=== PATIENT | female | born 2005 | race Caucasian/White ===

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

== ENCOUNTER 2024-01-20 02:33 | Outpatient (CLI) | payer MEDICAID, SELFPAY ==
[2024-01-20 14:35] LABS: Panorama Kit Sent via Fed Ex
[2024-01-20 14:44] LABS: Abs Immature Grans 0.03 10^3/uL (0.0-0.06); Absolute Basophil Count 0.06 10^3/uL (0.0-0.2); Absolute Eosinophil Count 0.19 10^3/uL (0.0-0.7); Absolute Lymphocyte Count 2.19 10^3/uL (1.2-3.4); Absolute Monocyte Count 0.42 10^3/uL (0.1-0.8); Absolute Neutrophil Count 6.63 10^3/uL (1.2-6.7); Basophils % 0.6 %; HCT 43.3 % (36.0-46.0); HGB 14.5 g/dL (11.2-15.7); Immature Grans % 0.3 %; MCH 28.5 pg (27.0-33.0); MCHC 33.5 % (32.0-36.0); MCV 85 fL (80-95); MPV 10.8 fL (8.0-11.0); Monocytes % 4.4 %; Neutrophils % 69.7 %; Platelet Count 327 10^3/uL (130-400); RBC 5.08 10^6/uL (3.93-5.22); RDW 14.5 % (11.7-14.6); WBC 9.52 10^3/uL (4.4-10.8)
[2024-01-20 15:40] LABS: TSH (W/Ref FT4) 0.93 uIU/mL (0.52-4.13)
[2024-01-21 09:53] LABS: Hepatitis B Surface Ag Negative (Negative)
[2024-01-21 10:15] LABS: Rubella IgG Ab (UVM) Positive (See Note)
[2024-01-21 10:17] LABS: Varicella IgG Antibody Negative (See Note)
[2024-01-21 10:24] LABS: HIV-1/2 Ag & Ab Screen Negative (Negative)
[2024-01-21 10:48] LABS: Hepatitis C Ab w Rflx HCV PCR Negative (Negative)
[2024-01-22 16:18] LABS: Syphilis IgG w/Reflex Nonreactive (Nonreactive)
[2024-01-23 16:45] LABS: Specimen WB Whole Blood
[2024-01-30 12:29] LABS: Result Summary NEGATIVE; Specimen WB Whole Blood
== END 2024-01-20 02:34 | disposition home or self-care (01) ==
LOC: LBO 02:33
PROVIDERS: Advanced Practice Midwife; Visit Provider Advanced Practice Midwife
DX: Z34.91 Encounter for supervision of normal pregnancy, unspecified, first trimester (principal); E03.9 Hypothyroidism, unspecified
CPT/HCPCS: 36415; 81220; 81222; 81329; 86787; 86803; 86850; 86900; 86901; 87340; 87389; 84443; 85025; 86762; 86780

== ENCOUNTER 2024-01-20 14:10 | Outpatient (REF) | payer MEDICAID, SELFPAY ==
[2024-01-21 12:44] LABS: Chlamydia Result Negative (Negative); GC Result Negative (Negative)
== END 2024-01-20 14:11 | disposition home or self-care (01) ==
LOC: LBN 14:10
PROVIDERS: Visit Provider Advanced Practice Midwife
DX: Z34.91 Encounter for supervision of normal pregnancy, unspecified, first trimester (principal)
CPT/HCPCS: 87491; 87591

== ENCOUNTER 2024-02-17 02:20 | Outpatient (CLI) | payer MEDICAID, SELFPAY ==
[2024-02-17 14:48] LABS: Glucose,1 Hr (Glucola) 143 mg/dL (80-140)
[2024-02-19 15:54] LABS: AFP 40.9 ng/mL; Calculated age at EDD 20 years; Cigarette smoking status non-Smoker; GA used in risk estimate Scan estimate; IVF Pregnancy No; Initial or repeat testing Initial testing; Insulin dependent diabetes No; Maternal Weight 184 lbs; Number of Fetuses 1; Physician Phone Number 802-748-7300; Prev Pregnancy w/NTD No; RECOMMENDED FOLLOW UP None.; Results Summary Normal risk
== END 2024-02-17 02:21 | disposition home or self-care (01) ==
LOC: LBO 02:20
PROVIDERS: Visit Provider Advanced Practice Midwife
DX: Z34.91 Encounter for supervision of normal pregnancy, unspecified, first trimester
CPT/HCPCS: 36415; 82950; 82105; 87086

== ENCOUNTER 2024-03-05 00:58 | Outpatient (CLI) | payer MEDICAID, SELFPAY | END 2024-03-05 00:59 | disposition home or self-care (01) | LOC: LBO 00:58 | PROVIDERS: Advanced Practice Midwife; Visit Provider Advanced Practice Midwife | DX: R73.09 Other abnormal glucose (principal) | CPT/HCPCS: 36415; 82951 ==

== ENCOUNTER 2024-03-15 01:52 | Outpatient (CLI) | payer MEDICAID, SELFPAY ==
--- NOTE | 2024-03-15 07:20 | DI.US_ITS ---
Exam(s) US OB 2-3 TRIMESTER EXAM: US OB 2-3 TRIMESTER CLINICAL HISTORY: ,z34.90. TECHNIQUE: Transabdominal obstetrical ultrasound performed. COMPARISON: No exams were available for comparison FINDINGS: Number of fetuses: 1 position: CEPHALIC heart rate: 96bpm Placental location: There is a grade 1 anterior placenta. The placental tip is 6.0 cm from the inter nal os. No evidence of previa. Amniotic fluid index: Amount of fluid is within normal limits. ANATOMICAL SURVEY: Within normal limits. BIOMETRIC DATA: BPD: 4.39cm, 19weeks 2days HC: 17.65cm, 20weeks 1day AC: 15.77cm, 20weeks 6days FL: 3.34cm, 20weeks 3days Cisterna magna: 4mm Cerebellum: 2cm Lateral ventricle: 0.7 cm EFW: 364.15g, 0.8lb, 54.6% Composite Age: 20weeks 1day RAVEN: 08/01/2024 Heart Rate: 96bpm ANATOMICAL SURVEY: Four-chambered heart: Unremarkable. RVOT: Unremarkable. LVOT: Unremarkable. Left-sided stomach: Unremarkable. urinary bladder: Unremarkable. Bilateral kidneys: Unremarkable. Three-vessel cord: Unremarkable. Cord insertion: Unremarkable. Posterior fossa: Unremarkable. ventricles: Unremarkable. nose/lips: Unremarkable. Palate: Unremarkable. spine: Unremarkable. Two arms and two legs: Unremarkable. IMPRESSION: 1. Single live intrauterine gestation as above. 2. Normal anatomic survey. DATA REPOSITORY:
== END 2024-03-15 02:12 ==
PROVIDERS: PCP Nurse Practitioner Family; Visit Provider Advanced Practice Midwife
DX: Z34.92 Encounter for supervision of normal pregnancy, unspecified, second trimester (principal); Z3A.20 20 weeks gestation of pregnancy
CPT/HCPCS: 76805

== ENCOUNTER 2024-03-15 14:03 | Outpatient (REF) | payer MEDICAID, SELFPAY | END 2024-03-15 14:04 | disposition home or self-care (01) | LOC: LBN 14:03 | PROVIDERS: PCP Nurse Practitioner Family; Visit Provider Advanced Practice Midwife | DX: Z34.92 Encounter for supervision of normal pregnancy, unspecified, second trimester (principal); Z3A.20 20 weeks gestation of pregnancy; R82.89 Other abnormal findings on cytological and histological examination of urine | CPT/HCPCS: 87086 ==

== ENCOUNTER 2024-04-12 14:37 | Outpatient (REF) | payer MEDICAID, SELFPAY | END 2024-04-12 14:38 | disposition home or self-care (01) | LOC: LBN 14:37 | PROVIDERS: PCP Nurse Practitioner Family; Visit Provider Advanced Practice Midwife | DX: N39.0 Urinary tract infection, site not specified (principal); Z34.92 Encounter for supervision of normal pregnancy, unspecified, second trimester | CPT/HCPCS: 87086 ==

== ENCOUNTER 2024-04-25 20:56 | Outpatient (CLI) | payer MEDICAID, SELFPAY ==
[2024-04-25 20:59] VITALS: BP 141/83; PULSE 85; RESP 16; TEMP 37.3; O2SAT 98
[2024-04-25 21:31] VITALS: BP 120/69; PULSE 83
--- NOTE | 2024-04-25 22:03 | W.ED.GENAD ---
Discharge Plan Disposition Patient Disposition: Admit to [facility] Condition: Stable Discharge Details Clinical Impression: Decreased movement Attending Provider: Rochelle Reeder Primary Care Provider: Rae Cristina ED Provider: Marco Antonio Forde [facility] General Date/Time Provider Initiated Documentation: 04/25/24 21:01. Limitations to Documentation: no limitations. Information obtained by: patient. HPI Narrative: 19-year-old female G1, P0 at 26 weeks presents for evaluation of decreased movement. She reports that she typically feels the baby move quite frequently throughout the day but has not had much movement since yesterday. She reports that this morning she also started having a sharp midline lower abdominal pain. Not associated with any abdominal cramping, loss of fluid or vaginal bleeding. She reports a white vaginal discharge that is been taking place throughout the . She denies any burning with urination or decreased urination. Related Data Home Medications ?Medication ?Instructions ?Recorded ?Confirmed levothyroxine 50 mcg capsule 50 mcg PO DAILY 04/30/23 04/25/24 ondansetron HCl 4 mg tablet 4 mg PO Q6H PRN nausea and 12/02/23 04/25/24 vomiting #60 tabs vitamins no.119-iron 1 tab PO DAILY 12/09/23 04/25/24 fumarate 29 mg-folic acid 1 mg tablet docusate sodium 100 mg capsule 100 mg PO BID #60 caps 02/17/24 04/25/24 (Colace) pantoprazole 40 mg tablet,delayed 40 mg PO DAILY #90 tabs 02/17/24 04/25/24 release (Protonix) lancets #100 ea 03/05/24 04/25/24 blood sugar diagnostic (OneTouch #100 ea 03/15/24 04/25/24 Ultra Test strips) blood-glucose meter (OneTouch #1 ea 03/15/24 04/25/24 Ultra2 Meter) aspirin 81 mg chewable tablet 81 mg PO DAILY 04/12/24 04/25/24 ferrous sulfate 325 mg (65 mg 325 mg PO DAILY #90 tabs 04/12/24 04/25/24 iron) tablet (Feosol) Previous Rx's ?Medication ?Instructions ?Recorded ondansetron HCl 4 mg tablet 4 mg PO Q6H PRN nausea and 12/02/23 vomiting #60 tabs docusate sodium 100 mg capsule 100 mg PO BID #60 caps 02/17/24 (Colace) pantoprazole 40 mg tablet,delayed 40 mg PO DAILY #90 tabs 02/17/24 release (Protonix) lancets #100 ea 03/05/24 blood sugar diagnostic (OneTouch #100 ea 03/15/24 Ultra Test strips) blood-glucose meter (OneTouch #1 ea 03/15/24 Ultra2 Meter) ferrous sulfate 325 mg (65 mg 325 mg PO DAILY #90 tabs 04/12/24 iron) tablet (Feosol) Allergies Allergy/AdvReac Type Severity Reaction Status Date / Time kiwi Allergy Severe Anaphylaxis Verified 04/25/24 21:04 peach Allergy Severe Anaphylaxis Verified 04/25/24 21:04 General Stated Complaint: [employer]IST RACHEL: 4 Exam Narrative Exam Narrative: Review of Systems: All systems reviewed & are unremarkable except as noted in HPI and below Well-developed, no acute distress NCAT Unlabored respiratory effort Gravid abdomen soft nontender, ultrasound with heart rate noted at 145 with some movement Course Vital Signs Vital signs: Vital Signs Temperature 37.3 C 04/25/24 20:59 Pulse 85 04/25/24 20:59 Respiratory Rate 16 04/25/24 20:59 Blood Pressure 141/83 H 04/25/24 20:59 Pulse Oximetry 98 04/25/24 20:59 Temperature 37.3 C 04/25/24 20:59 Pulse 83 04/25/24 21:31 Respiratory Rate 16 04/25/24 20:59 Blood Pressure 120/69 04/25/24 21:31 Pulse Oximetry 98 04/25/24 20:59 Pain Level 0 04/25/24 21:08 Medical Decision Making Urgent evaluation and decreased movement. Patient is approximately 26 weeks and followed by nurse midwives at this facility. Her blood pressure is noted to be slightly elevated and and should be rechecked. There is heart activity no movement noted. No signs of active labor. Discussed with L&D and the patient will go up there for further monitoring. Quality:SDOH Health Related Social Needs: No Data to Display PFSH All Active Problems (Updated 04/25/24 @ 21:26 by MIGUELANGEL MADRID) Decreased movement (Acute) Low back pain (Acute) sledding accident age 9. Has done PT Elevated glucose level (Acute) Body mass index [BMI] 36.0-36.9, adult (Acute) Maternal varicella, non-immune (Acute) Rh negative state in antepartum period (Acute) Nausea and vomiting during (Acute) (Acute) History of PCOS (Acute) Hypothyroid (Chronic) Medical History (Updated 04/25/24 @ 21:26 by MIGUELANGEL MADRID) UTI (urinary tract infection) Coccygeal fracture fell down stairs age 14 History of migraine Amenorrhea Polycystic ovarian syndrome diagnosed 10/2023 at [facility] Surgical History (Updated 01/20/24 @ 13:15 by Rochelle Reeder CNM) H/O wrist surgery ganglion cyst Family History (Updated 03/05/24 @ 10:42 by Isabela Zazueta CNM) Mother Breast cancer Cancer ovarian CA Migraine Diabetes T2DM, on insulin Maternal Grandmother Breast cancer Diabetes Father Diabetes Paternal Grandmother Cancer brain CA Paternal Grandfather Alcohol use disorder Maternal Uncle Diabetes Social History (Updated 04/30/23 @ 14:58 by Naz Cardenas RN) Smoking/Tobacco Use Status: Never Smoking risk assessment performed?: Yes Alcohol Intake: never Drug use: Never Do you feel safe at home: Yes Do you feel safe in your relationship?: Yes Female Reproductive History Menstrual Age of Menarche: 10 History History 1 Para Hx # Term Pregnancies 0 Multiple births Hx # Pregnancies Ectopic pregnancies AB induced Hx Number of Living Children AB spontaneous
[2024-04-25 22:06] VITALS: BP 120/69; PULSE 83; TEMP 36.7
--- NOTE | 2024-04-25 23:42 | PDOC.NST_ITS ---
Date of service: 04/25/24 Time of Service: 23:42 NST Evaluation Reason for NST Reasons for Nonstress Test: DECREASED MOVEMENT Gestational Age Gestational Age in Weeks and Days: 26 Weeks and 2Days Test and Monitor Explained Test/Monitor Explained: Test Explained, Monitor Explained and Patient Verbalized Understanding Vital Signs Blood Pressure: 120/69 Pulse: 83 Temperature: 98.0 F NST Information Date on Monitor: 04/25/24 Time on Monitor: 21:42 Date off Monitor: 04/25/24 Time off Monitor: 22:07 Total Time on Monitor: 25 NST Interventions: None Contraction Frequency: not stiven NST Evaluation Patient States Movement: Present FHR Baseline: 145 Variability: Moderate 6-25 bpm Accelerations: 15x15 Decelerations: None NST Results: Reactive Note Ultrasound Done: N/A. NST Note Note: Camryn came to the ED and reported decreased movement. Baby was active during NST and reactive NST obtained. She reports ligamnet pain fr which she has been seeing PT. Follow up at [facility] NST Reviewed and Verified by: Rochelle Reeder
[2024-04-25 23:44] VITALS: BP 120/69; PULSE 83; TEMP 36.7
== END 2024-04-25 22:30 ==
LOC: ER 21:26 → BCD 21:27 → OBS 21:30
PROVIDERS: Emergency Provider Emergency Medicine; PCP Nurse Practitioner Family; Visit Provider Advanced Practice Midwife
DX: O36.8120 Decreased fetal movements, second trimester, not applicable or unspecified (principal); Z3A.26 26 weeks gestation of pregnancy
CPT/HCPCS: 59025

== ENCOUNTER 2024-05-10 02:49 | Outpatient (CLI) | payer MEDICAID, SELFPAY ==
[2024-05-10 12:47] LABS: HCT 37.9 % (36.0-46.0); HGB 12.4 g/dL (11.2-15.7); MCH 29.1 pg (27.0-33.0); MCHC 32.7 % (32.0-36.0); MCV 89 fL (80-95); MPV 9.8 fL (8.0-11.0); Platelet Count 321 10^3/uL (130-400); RBC 4.26 10^6/uL (3.93-5.22); RDW 13.5 % (11.7-14.6); RDW-SD 43.8 fL; WBC 15.51 10^3/uL (4.4-10.8)
[2024-05-10 14:19] LABS: TSH (W/Ref FT4) 1.75 uIU/mL (0.36-3.74)
== END 2024-05-10 02:50 | disposition home or self-care (01) ==
LOC: LBO 02:49
PROVIDERS: PCP Nurse Practitioner Family; Visit Provider Advanced Practice Midwife
DX: Z34.93 Encounter for supervision of normal pregnancy, unspecified, third trimester (principal); E03.9 Hypothyroidism, unspecified
CPT/HCPCS: 36415; 85027; 86850; 90384; 84443

== ENCOUNTER 2024-06-22 14:04 | Outpatient (CLI) | payer MEDICAID, SELFPAY ==
[2024-06-22 14:14] VITALS: BP 123/72; PULSE 83; TEMP 36.8
--- NOTE | 2024-06-22 17:51 | W.OBNST ---
Date of service: 06/22/24 Time of Service: 17:51 NST Evaluation Reason for NST Reasons for Nonstress Test: DECREASED MOVEMENT Gestational Age Gestational Age in Weeks and Days: 34 Weeks and 4Days Test and Monitor Explained Test/Monitor Explained: Test Explained, Monitor Explained and Patient Verbalized Understanding Vital Signs Blood Pressure: 123/72 Pulse: 83 Temperature: 98.2 F Urine Results Urine Protein: Negative Urine Ketones: Negative Urine Glucose: Negative Urine Blood: Negative NST Information Date on Monitor: 06/22/24 Time on Monitor: 14:06 Date off Monitor: 06/22/24 Time off Monitor: 15:42 Total Time on Monitor: 96 NST Interventions: None, PO Hydration and Notify Provider NST Evaluation Patient States Movement: Decreased FHR Baseline: 145 Variability: Moderate 6-25 bpm Accelerations: 15x15 Decelerations: None NST Results: Reactive NST Results Other: irregular FHT rhythm heard Note Ultrasound Done: N/A. NST Note Note: Discussed FHT irregularity with pt, she accepts referral to [facility], which has been ordered. NST Reviewed and Verified by: Mee Winter
[2024-06-22 17:52] VITALS: BP 123/72; PULSE 83; TEMP 36.8
== END 2024-06-22 16:20 ==
LOC: BCD 14:05 → OBS 14:12
PROVIDERS: PCP Nurse Practitioner Family; Visit Provider Advanced Practice Midwife
DX: Z3A.34 34 weeks gestation of pregnancy (principal); O36.8131 Decreased fetal movements, third trimester, fetus 1
CPT/HCPCS: 59025

== ENCOUNTER 2024-07-05 14:44 | Outpatient (CLI) | payer MEDICAID, SELFPAY ==
[2024-07-05 15:25] VITALS: BP 126/82; PULSE 71
--- NOTE | 2024-07-05 17:10 | W.OBNST ---
Date of service: 07/05/24 Time of Service: 17:10 NST Evaluation Reason for NST Reasons for Nonstress Test: OTHER, SEE COMMENT Reason for NST Other: hx of arrythmia Gestational Age Gestational Age in Weeks and Days: 36 Weeks and 3Days Test and Monitor Explained Test/Monitor Explained: Test Explained, Monitor Explained and Patient Verbalized Understanding Vital Signs Blood Pressure: 126/82 Pulse: 71 Urine Results Urine Protein: Negative Urine Ketones: Negative Urine Glucose: Negative Urine Blood: Negative NST Information Date on Monitor: 07/05/24 Time on Monitor: 14:56 Date off Monitor: 07/05/24 Time off Monitor: 16:30 Total Time on Monitor: 94 NST Interventions: PO Hydration and Reposition Patient Contraction Frequency: 0 NST Evaluation Patient States Movement: Present FHR Baseline: 135 Variability: Moderate 6-25 bpm Accelerations: 15x15 Decelerations: None NST Results: Reactive Note Ultrasound Done: N/A. NST Note Note: No arrhythmia heard NST weekly NST Reviewed and Verified by: Mee Winter
[2024-07-05 17:11] VITALS: BP 126/82; PULSE 71
[2024-07-05 17:17] VITALS: BP 126/82; PULSE 71
== END 2024-07-05 16:45 ==
LOC: BCD 14:45 → OBS 15:05
PROVIDERS: PCP Nurse Practitioner Family; Visit Provider Advanced Practice Midwife
DX: O36.8331 Maternal care for abnormalities of the fetal heart rate or rhythm, third trimester, fetus 1 (principal); Z3A.36 36 weeks gestation of pregnancy
CPT/HCPCS: 59025

== ENCOUNTER 2024-07-05 15:05 | Outpatient (REF) | payer MEDICAID, SELFPAY | END 2024-07-05 15:06 | disposition home or self-care (01) | LOC: LBN 15:05 | PROVIDERS: PCP Nurse Practitioner Family; Visit Provider Advanced Practice Midwife | DX: Z34.93 Encounter for supervision of normal pregnancy, unspecified, third trimester (principal) | CPT/HCPCS: 87081 ==

== ENCOUNTER 2024-07-14 15:10 | Outpatient (CLI) | payer MEDICAID, SELFPAY ==
[2024-07-14 15:26] VITALS: BP 127/75; PULSE 77; TEMP 36.6
[2024-07-14 15:42] VITALS: BP 127/75; PULSE 77; TEMP 36.6
--- NOTE | 2024-07-14 15:42 | W.OBNST ---
Date of service: 07/14/24 Time of Service: 15:42 NST Evaluation Reason for NST Reasons for Nonstress Test: OTHER, SEE COMMENT Reason for NST Other: Arrythmia Gestational Age Gestational Age in Weeks and Days: 37 Weeks and 2Days Test and Monitor Explained Test/Monitor Explained: Test Explained, Monitor Explained and Patient Verbalized Understanding Vital Signs Blood Pressure: 127/75 Pulse: 77 Temperature: 97.9 F Urine Results Urine Protein: Negative Urine Ketones: Negative Urine Glucose: Negative Urine Blood: Negative NST Information Date on Monitor: 07/14/24 Time on Monitor: 15:11 Date off Monitor: 07/14/24 Time off Monitor: 15:31 Total Time on Monitor: 20 NST Interventions: PO Hydration and Notify Provider Contraction Frequency: 0 NST Evaluation Patient States Movement: Present FHR Baseline: 150 Variability: Moderate 6-25 bpm Accelerations: 15x15 Decelerations: None NST Results: Reactive Note Ultrasound Done: N/A. NST Note NST Reviewed and Verified by: Mee Winter
== END 2024-07-14 15:39 ==
LOC: BCD 15:10 → OBS 15:18
PROVIDERS: PCP Nurse Practitioner Family; Visit Provider Advanced Practice Midwife
DX: O36.8331 Maternal care for abnormalities of the fetal heart rate or rhythm, third trimester, fetus 1 (principal); Z3A.37 37 weeks gestation of pregnancy
CPT/HCPCS: 59025

== ENCOUNTER 2024-07-20 20:42 | Outpatient (CLI) | payer MEDICAID, SELFPAY ==
[2024-07-20 21:31] VITALS: BP 117/76; PULSE 82; TEMP 36.5
[2024-07-20 21:40] VITALS: BP 117/76; PULSE 82
--- NOTE | 2024-07-21 09:17 | W.OBNST ---
Date of service: 07/20/24 Time of Service: 22:00 NST Evaluation Reason for NST Reasons for Nonstress Test: DECREASED MOVEMENT Gestational Age Gestational Age in Weeks and Days: 38 Weeks and 4Days Test and Monitor Explained Test/Monitor Explained: Test Explained, Monitor Explained and Patient Verbalized Understanding Vital Signs Blood Pressure: 117/76 Pulse: 82 Temperature: 97.7 F Urine Results Urine Protein: Negative Urine Ketones: Negative Urine Glucose: Negative Urine Blood: Negative NST Information Date on Monitor: 07/20/24 Time on Monitor: 21:35 Date off Monitor: 07/20/24 Time off Monitor: 22:07 Total Time on Monitor: 32 Contraction Frequency: 0 NST Evaluation Patient States Movement: Decreased FHR Baseline: 125 Variability: Moderate 6-25 bpm Accelerations: 15x15 Decelerations: None NST Results: Reactive Note Ultrasound Done: N/A. NST Note Note: Camryn called and reported decreased fetl movement. The baby was active during NST and Camryn was able to detect movement. Reactive NST NST Reviewed and Verified by: Rochelle Reeder
[2024-07-21 09:18] VITALS: BP 117/76; PULSE 82; TEMP 36.5
== END 2024-07-20 22:15 ==
LOC: BCD 20:44 → OBS 21:29
PROVIDERS: PCP Nurse Practitioner Family; Visit Provider Advanced Practice Midwife
DX: O36.8131 Decreased fetal movements, third trimester, fetus 1 (principal); Z3A.38 38 weeks gestation of pregnancy
CPT/HCPCS: 59025

== ENCOUNTER 2024-07-23 07:37 | Outpatient (CLI) | payer MEDICAID, SELFPAY ==
[2024-07-23 14:25] VITALS: BP 118/73; PULSE 81; TEMP 36.7
[2024-07-23 14:55] VITALS: BP 118/73; PULSE 81
[2024-07-23 15:34] VITALS: BP 118/73; PULSE 81; TEMP 36.7
--- NOTE | 2024-07-23 15:34 | W.OBNST ---
Date of service: 07/23/24 Time of Service: 15:34 NST Evaluation Reason for NST Reasons for Nonstress Test: OTHER, SEE COMMENT Reason for NST Other: arrythmia Gestational Age Gestational Age in Weeks and Days: 39 Weeks and 0Days Test and Monitor Explained Test/Monitor Explained: Test Explained Vital Signs Blood Pressure: 118/73 Pulse: 81 Temperature: 98.1 F NST Information Date on Monitor: 07/23/24 Time on Monitor: 14:25 NST Interventions: PO Hydration NST Evaluation Patient States Movement: Present FHR Baseline: 145 Variability: Moderate 6-25 bpm Accelerations: 15x15 Decelerations: None NST Results: Reactive Note Ultrasound Done: N/A. NST Note Note: No arrythmia heard NST Reviewed and Verified by: Mee Winter
== END 2024-07-23 15:15 ==
LOC: BCD 07:38 → OBS 14:33
PROVIDERS: PCP Nurse Practitioner Family; Visit Provider Advanced Practice Midwife
DX: O36.8331 Maternal care for abnormalities of the fetal heart rate or rhythm, third trimester, fetus 1 (principal); Z3A.39 39 weeks gestation of pregnancy
CPT/HCPCS: 59025

== ENCOUNTER 2024-07-27 17:05 | Outpatient (CLI) | payer MEDICAID, SELFPAY ==
[2024-07-27 18:24] VITALS: BP 139/97; PULSE 100
[2024-07-27 18:31] VITALS: BP 133/88; PULSE 100; TEMP 36.5
[2024-07-27 18:56] VITALS: BP 129/76; PULSE 106
[2024-07-27 19:12] LABS: COMMENT (LAB VIEW ONLY) 45.01 mg/dL; PROTEIN 6.7 mg/dL; Prot/Crea Ur Ratio 0.14
[2024-07-27 19:14] LABS: HCT 38.4 % (36.0-46.0); HGB 12.8 g/dL (11.2-15.7); MCH 27.5 pg (27.0-33.0); MCHC 33.3 % (32.0-36.0); MCV 82 fL (80-95); MPV 11.1 fL (8.0-11.0); Platelet Count 261 10^3/uL (130-400); RBC 4.66 10^6/uL (3.93-5.22); RDW 14.2 % (11.7-14.6); RDW-SD 41.9 fL; WBC 15.65 10^3/uL (4.4-10.8)
[2024-07-27 19:30] LABS: ALT 14 U/L (14-59); AST 8 U/L (15-37); Albumin 2.7 g/dL (3.4-5.0); Alkaline Phosphatase 181 U/L (46-116); Anion Gap 12.4 mmol/L (3-11); BUN 6 mg/dL (7-18); Bilirubin, Total 0.2 mg/dL (0.2-1.0); CO2 22.6 mmol/L (21.0-32.0); CREATININE 0.7 mg/dL (0.55-1.02); Calcium 9.3 mg/dL (8.5-10.1); Chloride 105 mmol/L (98-107); Glucose 110 mg/dL (74-106); Potassium 3.8 mmol/L (3.5-5.1); Sodium 140 mmol/L (136-145)
[2024-07-27 19:31] VITALS: BP 133/88; PULSE 90
[2024-07-27] MEDS: Acetaminophen 500 MG TAB 1000 MG PO (19:38)
--- NOTE | 2024-07-27 19:44 | W.OBNST ---
Date of service: 07/27/24 Time of Service: 19:44 NST Evaluation Reason for NST Reasons for Nonstress Test: OTHER, SEE COMMENT Reason for NST Other: rule out labor Gestational Age Gestational Age in Weeks and Days: 39 Weeks and 4Days Test and Monitor Explained Test/Monitor Explained: Test Explained, Monitor Explained and Patient Verbalized Understanding Vital Signs Blood Pressure: 129/76 Pulse: 100 Temperature: 97.7 F Urine Results Urine Protein: Negative Urine Ketones: Negative Urine Glucose: Negative Urine Blood: Negative NST Information Date on Monitor: 07/27/24 Time on Monitor: 18:24 Date off Monitor: 07/27/24 Time off Monitor: 19:30 Total Time on Monitor: 66 NST Interventions: PO Hydration Contraction Frequency: 2-5 NST Evaluation Patient States Movement: Present FHR Baseline: 120 Variability: Moderate 6-25 bpm Accelerations: 15x15 Decelerations: None NST Results: Reactive Note Ultrasound Done: N/A. NST Note Note: Cvx closed, posterior, firm, cephalic presentation out of the pelvis (Lamb score 0) BP 130's over 80's, one mild range, labs WNL NST reactive Return in 48 hrs for recheck and NST NST Reviewed and Verified by: Mee Winter
[2024-07-27 19:47] VITALS: BP 129/76; PULSE 100; TEMP 36.5
== END 2024-07-27 19:41 ==
LOC: BCD 17:09 → OBS 17:10
PROVIDERS: PCP Nurse Practitioner Family; Visit Provider Advanced Practice Midwife
DX: O47.1 False labor at or after 37 completed weeks of gestation (principal); Z3A.39 39 weeks gestation of pregnancy
CPT/HCPCS: 80053; 85027; 59025; 82565; 84156

== ENCOUNTER 2024-07-29 15:21 | Outpatient (CLI) | payer MEDICAID, SELFPAY ==
[2024-07-29 15:41] VITALS: BP 133/84; PULSE 99; TEMP 36.6
[2024-07-29 16:25] VITALS: BP 133/84; PULSE 90
--- NOTE | 2024-07-29 17:23 | W.OBNST ---
Date of service: 07/29/24 Time of Service: 17:49 NST Evaluation Reason for NST Reasons for Nonstress Test: FALSE LABOR Gestational Age Gestational Age in Weeks and Days: 39 Weeks and 6Days Test and Monitor Explained Test/Monitor Explained: Test Explained, Monitor Explained and Patient Verbalized Understanding Vital Signs Blood Pressure: 133/84 Pulse: 90 NST Information Time on Monitor: 15:42 Date off Monitor: 07/29/24 Time off Monitor: 16:10 NST Interventions: None NST Evaluation Patient States Movement: Present FHR Baseline: 135 Variability: Moderate 6-25 bpm Accelerations: 15x15 Decelerations: None Note Ultrasound Done: N/A. NST Note Note: Camryn went to a relative's house to ambulate and she returned with stronger contractions. She was examined and cervix was FT/560%/-2. Membranes intact. reactive NST. I reviewed options of continued observation, therapeutic rest and returning home. She decided to return home to await active labor. Adequate hydration recommended. Signs of labor reviewed. NST Reviewed and Verified by: Rochelle Reeder
[2024-07-29 17:26] VITALS: BP 133/84; PULSE 90
--- NOTE | 2024-07-29 23:41 | W.OBNST ---
Date of service: 07/29/24 Time of Service: 18:00 NST Evaluation Reason for NST Reasons for Nonstress Test: FALSE LABOR Gestational Age Gestational Age in Weeks and Days: 39 Weeks and 6Days Test and Monitor Explained Test/Monitor Explained: Test Explained, Monitor Explained and Patient Verbalized Understanding Vital Signs Blood Pressure: 133/84 Pulse: 90 NST Information Date on Monitor: 07/29/24 Time on Monitor: 15:42 Date off Monitor: 07/29/24 Time off Monitor: 16:10 Total Time on Monitor: 28 NST Interventions: None NST Evaluation Patient States Movement: Present FHR Baseline: 135 Variability: Moderate 6-25 bpm Accelerations: 15x15 Decelerations: None Note Ultrasound Done: N/A. NST Note Note: Camryn returned from her relative's house and reported that she was having stronger contractions. Her cervix was unchanged and she was given the option of therapeutic rest or returning hime to await more active labor. She chose to return to her home and signs of active labor were reviewed. NST Reviewed and Verified by: Rochelle Reeder
[2024-07-29 23:43] VITALS: BP 133/84; PULSE 90
== END 2024-07-29 16:32 ==
LOC: BCD 15:22 → OBS 15:40
PROVIDERS: PCP Nurse Practitioner Family; Visit Provider Advanced Practice Midwife
DX: O36.8331 Maternal care for abnormalities of the fetal heart rate or rhythm, third trimester, fetus 1 (principal); Z3A.39 39 weeks gestation of pregnancy
CPT/HCPCS: 59025

== ENCOUNTER 2024-07-30 12:57 | Inpatient (IN) | payer MEDICAID, SELFPAY ==
[2024-07-30] VITALS (66 sets, daily range): BP systolic 116–142; BP diastolic 63–89; PULSE 0–123; RESP 16–120; TEMP 36.3–37.4; O2SAT 95–99; BMI 38.0
[2024-07-30 13:20] LABS: HCT 40.9 % (36.0-46.0); HGB 13.6 g/dL (11.2-15.7); MCH 27.3 pg (27.0-33.0); MCHC 33.3 % (32.0-36.0); MCV 82 fL (80-95); MPV 11.4 fL (8.0-11.0); Platelet Count 290 10^3/uL (130-400); RBC 4.98 10^6/uL (3.93-5.22); RDW 14.3 % (11.7-14.6); RDW-SD 41.4 fL; WBC 17.07 10^3/uL (4.4-10.8)
--- NOTE | 2024-07-30 13:23 | HPE_ITS ---
Date of service: 07/30/24 Time of Service: 13:25 Assessment and Plan Assessment and plan (1) Encounter for induction of labor: Status: Acute Assessment and plan: Admit to Center and routine admission labs. Reviewed options with Camryn and Casimiro of therapeutic rest or cervical ripening with or without epidural analgesia. She prefers not to take medication and she opts to proceed with cervical ripening. She requested to avoid an IV unless medically indicate. Reviewed options for ripening and she desires oral misoprostol at this time. Maikol Kowalski DIRECTOR OF PROGRAM MANAGEMENT notified of admission and he will meet Camryn to discuss analgesia options. She hopes to use the tub for comfort. Will continue to provide comfort measures. Anticipate . OB-HPI Labor/Delivery History of Present Illness Reason for Visit: cervical ripening Chief Complaint: Uterine Contractions; Maternal Discomfort (fatigue) , Associated Signs and Symptoms of Maternal Discomfort: contractions. RAVEN Calculator Estimated Delivery Date Method Current WG Current Estimate 07/30/24 Ultrasound #1 40w 0d Other Estimates 07/15/24 LMP (Certain) 42w 1d Comments: Camryn was evaluated twice yesterday for uterine contractions since early yesterday morning which were regular without cervical change. She returned home last evening to await active labr. She has been trying to take adequate fluids and rest when she can. She reports that she slept about 3 hours in naps. History of Present Expected Delivery Route/Plan - CNM FOB - Casimiro [facility] [place] Varicella non-immune, pt accepts vaccine Desires access to tub and shower, hopes to avoid epidural. Wants to deliver H&K or side lying, hx broken tailbone GBS negative Specific Issues/Plan 1. History of amenorrhea and PCOS - recent Hgb A1C at [facility] 5.5 2. Hypothyroid- TSH 11/08 at [facility] was WNL, 01/19-TSH 1.32 2a. Has not been taking levothyroxine during this due to nausea, repeat TSH at 28 wks=1.75 (no meds) 3. Hyperemesis @ 5w4d. Rx for Ondansetron given. Diclegis Rx not approved. 12/19/23. Rx for Reglan 10mg q6hr PRN with instructions to continue Ondansetron. D/c Reglan as she found it ineffective. 3a. 1/27/25: taking zofran about once per day and protonix with good effect 4. Treated for UTI at 11 weeks at [facility] ED, Treated with Keflex (only taking BID) PRIYA 03/15/24 mixed gram pos 5. A Neg, Discussed with Carlos Cowan 28 wk 05/10/24 6. increased risk preeclampsia - ASA recommended daily. Confirm that she is taking: pt states she is taking (on 05/10) 7. Genetic testing options - cfDNA low risk female, CF & SMA neg, AFP nml risk for NTD 8. BMI 36- early LOM=237, 3 hr GTT, fasting 82 then vomited, start QID testing x 2weeks, supplied sent 03/05- glucose readings WNL. 8a. Will test QID instead of 3-hr GTT at 28 weeks: all values for 14 days are WNL, fastings <90 9. Leg cramps- magnesium was recommended. She did not take it. Drinking strawberry banana smoothies which has helped 10. Low back pain history and coccygeal fracture - referral to PT 11. At 34 wks irregular FHT rhythm heard on NST for DFM. Referred to [facility] [place] - 51%ile and normal GARY. No arrhythmia heard at [facility] [place]. Weekly NSTs recommended until delivery.__ Assessment: History Reviewed & Current Informed Consent Informed Consent: Augmentation of Labor (vs. therapeutic rest vs expectant management) [facility] All Active Problems (Updated 07/30/24 @ 13:27 by Rochelle Reeder CNM) Encounter for induction of labor (Acute) Migraine (Chronic) Decreased movement (Acute) Low back pain (Acute) sledding accident age 9. Has done PT Elevated glucose level (Acute) Body mass index [BMI] 36.0-36.9, adult (Acute) Maternal varicella, non-immune (Acute) Rh negative state in antepartum period (Acute) Nausea and vomiting during (Acute) (Acute) History of PCOS (Acute) Hypothyroid (Chronic) TSH nml at 28 wks with no medication for months. Medical History (Updated 07/30/24 @ 13:27 by Rochelle Reeder CNM) Irregular heart rate UTI (urinary tract infection) Coccygeal fracture fell down stairs age 14 History of migraine Amenorrhea Polycystic ovarian syndrome diagnosed 10/[address] [facility] Surgical History (Updated 01/20/24 @ 13:15 by Rochelle Reeder CNM) H/O wrist surgery ganglion cyst Family History (Updated 03/05/24 @ 10:42 by Isabela Zazueta CNM) Mother Breast cancer Cancer ovarian CA Migraine Diabetes T2DM, on insulin Maternal Grandmother Breast cancer Diabetes Father Diabetes Paternal Grandmother Cancer brain CA Paternal Grandfather Alcohol use disorder Maternal Uncle Diabetes Social History (Updated 04/30/23 @ 14:58 by Naz Cardenas RN) Smoking/Tobacco Use Status: Never Smoking risk assessment performed?: Yes Alcohol Intake: never Drug use: Never Housing: house Do you feel safe at home: Yes Do you feel safe in your relationship?: Yes Female Reproductive History Menstrual Age of Menarche: 10 History History 1 Para 0 Hx # Term Pregnancies 0 Multiple births 0 Hx # Pregnancies 0 Ectopic pregnancies 0 AB induced 0 Hx Number of Living Children 0 AB spontaneous 0 Meds Allergies and Home Medications Allergies Allergy/AdvReac Type Severity Reaction Status Date / Time kiwi Allergy Severe Anaphylaxis Verified 07/29/24 09:06 peach Allergy Severe Anaphylaxis Verified 07/29/24 09:06 strawberry Allergy Intermediate Skin Rash Verified 07/29/24 09:06 Home Medications ?Medication ?Instructions ?Recorded ?Confirmed ?Type docusate sodium 100 mg capsule 100 mg PO BID #60 caps 02/17/24 07/30/24 Rx (Colace) pantoprazole 40 mg tablet,delayed 40 mg PO DAILY #90 t abs 02/17/24 07/30/24 Rx release (Protonix) aspirin 81 mg chewable tablet 81 mg PO DAILY 04/12/24 07/30/24 History ferrous sulfate 325 mg (65 mg 325 mg PO DAILY #90 tabs 04/12/24 07/30/24 Rx iron) tablet (Feosol) ondansetron HCl 4 mg tablet See Rx Instructions .Route 06/08/24 07/30/24 Rx .COMPLEX #60 tabs Exam Physical Exam Vital signs: Pulse BP 100 H 123/89 07/30/24 11:55 07/30/24 11:55 Vital Signs Reviewed: Yes Constitutional Constitutional: mild distress Detailed Labor and Delivery Exam Dilation: 1 Effacement (%): 90 station: -2 Cervix position: posterior Consistency: soft Hart Score: Cervical Points Exam 0 1 2 3 Dilation Closed 1-2cm 3-4 cm 5-6cm Effacement 0-30% 40-50% 60-70% 80% Consistency Firm Medium Soft Station -3 -2 -1,0 +1,+2 Position Posterior Mid Anterior HART Score(Cervical Ripeness Score): 7 Amniotic Membrane Status: Intact Monitor Mode: External Contraction Frequency(min): every 4 min Contraction Duration(sec): 50-60 Contraction Intensity: Moderate Fetus A Heart Rate Baseline: 140 Monitor Accelerations: 15 X 15 Monitor Decelerations: None Variability: Moderate (6-25 BPM) Categories: Category I Est. Weight: 7.5 HEENT Exam HEENT Exam: Normal Respiratory Exam Respiratory Exam: Normal Cardiovascular Exam Cardiovascular Exam: Normal Abdominal Exam Abdominal Exam: Normal Exam Exam: Normal Extremities Exam Extremities Exam: Normal Skin Exam Skin Exam: Normal Psychiatric Exam Psychiatric Exam: Normal Results Abnormal Lab Findings: Abnormal Labs 07/30/24 13:07 WBC 17.07 H MPV 11.4 H Risk Assessment Risk for Shoulder Dystocia Historical/Initial OB: POSITIVE FOR: Pre- BMI>30; NEGATIVE FOR: Pelvic Abnormality, Previous Shoulder Dystocia or Previous Macrosomia 36 Weeks: NEGATIVE FOR: Current Gestational DM, EFW>4500gms or Maternal Weight Gain>40lbs 40 Weeks: NEGATIVE FOR: EFW> 4500 gms, Maternal Weight Gain >40lb or Post Dates Increased Risk?: No Risk for Pre-Eclampsia Daily Dose ASA Indicated: Yes Date Initiated/Initials: 01/20/24 Yes, if one or more: NEGATIVE FOR: Hx Pre-E/Gest HTN, Chronic HTN, Multiple Gestation, Pre-gestational DM, Renal Disease, Systemic Lupus or APA Syndrome Yes, if 2 or more: POSITIVE FOR: Nulliparity and BMI>30; NEGATIVE FOR: Age>= 35 yrs, >10yr btwn pregnancies, ethinicty, Mother/Sister w/ Pre-E or Previous IUGR Risk for Post- Hemorrhage Initial: NEGATIVE FOR: Multiple Gestation, Previous PPH, Known Clotting Deficiency, Grand Multiparity or Anticoagulation 36 Weeks: NEGATIVE FOR: Anemia, hgb<10, Low platelets(thrombocytopenia), Gestational HTN or Pre-E, Polyhydraminios or EFW>4500gms 40 Weeks: NEGATIVE FOR: Anemia, hgb<10, Low platelets (thrombocytopenia), Gestation HTN or Pre-E, Polyhydraminios or EFW>4500gms At Risk?: No Risks Reviewed Risks Reviewed Upon Admission: Yes
[2024-07-30] MEDS: miSOPROStol 25 MCG TAB PO (14:10)
--- NOTE | 2024-07-30 15:10 | W.OBNST ---
Date of service: 07/30/24 Time of Service: 16:22 NST Evaluation Reason for NST Reasons for Nonstress Test: OTHER, SEE COMMENT Reason for NST Other: rule out labor Gestational Age Gestational Age in Weeks and Days: 40 Weeks and 0Days Test and Monitor Explained Test/Monitor Explained: Test Explained, Monitor Explained and Patient Verbalized Understanding Vital Signs Blood Pressure: 123/89 Pulse: 100 Temperature: 97.6 F Urine Results Urine Protein: Negative Urine Ketones: Negative Urine Glucose: Negative Urine Blood: Negative NST Information Time on Monitor: 11:56 Date off Monitor: 07/30/24 Time off Monitor: 12:50 NST Interventions: PO Hydration Contraction Frequency: 3-5 NST Evaluation Patient States Movement: Present FHR Baseline: 145 Variability: Moderate 6-25 bpm Accelerations: 15x15 Decelerations: Variable NST Results: Reactive Note Ultrasound Done: N/A. NST Note Note: Camryn called this morning with stronger contractions and is here for rule out labor. cervix 1/90%/-2. Reactive NST.Mild to mod contractions every 3-5 minutes. NST Reviewed and Verified by: Rochelle Reeder
--- NOTE | 2024-07-30 15:12 | W.ANESPRE ---
General Info Date of Service Date Performed: 07/30/24 Height: 5 ft 3 in Weight: 97.522 kg Body Mass Index (BMI): 38.0 Meds Allergies and Home Medications Allergies Allergy/AdvReac Type Severity Reaction Status Date / Time kiwi Allergy Severe Anaphylaxis Verified 07/29/24 09:06 peach Allergy Severe Anaphylaxis Verified 07/29/24 09:06 strawberry Allergy Intermediate Skin Rash Verified 07/29/24 09:06 Home Medication ?Medication ?Instructions ?Recorded docusate sodium 100 mg capsule 100 mg PO BID #60 caps 02/17/24 (Colace) pantoprazole 40 mg tablet,delayed 40 mg PO DAILY #90 tabs 02/17/24 release (Protonix) aspirin 81 mg chewable tablet 81 mg PO DAILY 04/12/24 ferrous sulfate 325 mg (65 mg 325 mg PO DAILY #90 tabs 04/12/24 iron) tablet (Feosol) ondansetron HCl 4 mg tablet See Rx Instructions .Route 06/08/24 .COMPLEX #60 tabs Current Visit Medications: Current Medications Generic Name Dose Route Start Last Admin Trade Name Freq PRN Reason Stop Dose Admin Ringer's Solution 1,000 mls @ 200 mls/hr 07/30/24 13:00 IV INFUSION [facility] IV Miscellaneous Supplies 1 each 07/30/24 13:00 Iv Access IV DIRECTED [facility] Misoprostol 25 mcg 07/30/24 13:00 07/30/24 14:10 Misoprostol 25 Mcg Tab PO 25 mcg Q4H FLY Administration Sodium Chloride 0 ml 07/30/24 12:56 Normal Saline Flush 10 Ml Syr IVP PRN PRN Sodium Chloride 0 ml 07/30/24 20:00 Normal Saline Flush 10 Ml Syr IVP BID FLY Sodium Chloride 0 ml 07/30/24 12:56 Normal Saline 10 Ml Vial IJ DIRECTED PRN Terbutaline Sulfate 0.25 mg 07/30/24 12:56 Terbutaline 1 Mg/Ml Vial SC PRN PRN Zolpidem Tartrate 10 mg 07/30/24 21:00 Zolpidem 5 Mg Tab PO 07/31/24 06:00 2100 [facility] PFS Active Problems Active Problems: Problem Status Onset Code Encounter for induction of labor Acute Z34.90 Migraine Chronic G43.909 Decreased movement Acute O36.8190 Low back pain Acute M54.50 Elevated glucose level Acute R73.09 Body mass index [BMI] 36.0-36.9, adult Acute Z68.36 Maternal varicella, non-immune Acute O09.899, Z28.39 Rh negative state in antepartum period Acute O26.899, Z67.91 Nausea and vomiting during Acute O21.9 Acute Z34.90 History of PCOS Acute Z87.42 Hypothyroid Chronic E03.9 Medical History Medical History (Updated 07/30/24 @ 13:27 by Rochelle Reeder CNM) Irregular heart rate UTI (urinary tract infection) Coccygeal fracture fell down stairs age 14 History of migraine Amenorrhea Polycystic ovarian syndrome diagnosed 10/2023 at [facility] Surgical History Surgical History (Updated 01/20/24 @ 13:15 by Rochelle Reeder CNM) H/O wrist surgery ganglion cyst Tobacco Smoking/Tobacco Use Status: Never Alcohol Alcohol Intake: never Substance Use Substance use: Never Prental History History 1 Para 0 Hx # Term Pregnancies 0 Multiple births 0 Hx # Pregnancies 0 Ectopic pregnancies 0 AB induced 0 Hx Number of Living Children 0 AB spontaneous 0 Vital Signs and Lab Results Vital Signs Most Recent Vital Signs in EMR: Most Recent Vital Signs Temp Pulse Resp BP Pulse Ox 36.3 C L 96 H 18 132/78 97 07/30/24 13:37 07/30/24 13:37 07/30/24 13:37 07/30/24 13:37 07/30/24 13:37 Lab Results 07/30/24 13:07 Blood Type / Crossmatch: Antibody Screen NEGATIVE Today Complete Blood Count: WBC, (4.4-10.8) 17.07 10^3/uL H Today, 13:07 RBC, (3.93-5.22) 4.98 10^6/uL Today, 13:07 Hgb, (11.2-15.7) 13.6 g/dL Today, 13:07 Hct, (36.0-46.0) 40.9 % Today, 13:07 Plt Count, (130-400) 290 10^3/uL Today, 13:07 Complete Metabolic Panel: Sodium, (136-145) 140 mmol/L 07/27/24, 19:05 Potassium, (3.5-5.1) 3.8 mmol/L 07/27/24, 19:05 Chloride, (98-107) 105 mmol/L 07/27/24, 19:05 Carbon Dioxide, (21.0-32.0) 22.6 mmol/L 07/27/24, 19:05 BUN, (7-18) 6 mg/dL L 07/27/24, 19:05 Creatinine, (0.55-1.02) 0.7 mg/dL 07/27/24, 19:05 Est GFR (CKD-EPI 2020), (mL/min/1.73m2) 126.90 07/27/24, 19:05 Calcium, (8.5-10.1) 9.3 mg/dL 07/27/24, 19:05 Albumin, (3.4-5.0) 2.7 g/dL L 07/27/24, 19:05 Glucose, (74-106) 110 mg/dL H 07/27/24, 19:05 Liver Function Panel: ALT, (14-59) 14 U/L 07/27/24, 19:05 AST, (15-37) 8 U/L L 07/27/24, 19:05 Anesthesia Assessment and Plan Anesthesia History Personal History: No History of Anesthesia Complications Family History: No Family History of Anesthesia Complications Exercise Tolerance Exercise Tolerance: Metabolic Equivalents>4 Pertinent Negatives Pertinent Negatives: No Symptoms of GERD Cardiac & Pulmonary Exam Cardiac Exam: Normal S1/S2 Heart Sounds Pulmonary Exam: Clear Bilateral Breath Sounds Implantable Cardiac Device Does patient have a Pacemaker or an ICD?: No Airway Exam Known Difficult Airway: No Mallampati Class: 2 Mouth Opening: Normal (> 3cm) Thyromental Distance: Greater than 3 cm Neck Range of Motion: Full ROM Neck Circumference: Normal Teeth Condition: Normal Dentition ASA Classification ASA Score: ASA 2 Emergency Case?: No NPO Status NPO Status: NPO Clears >2 hours, Solids >8 hours Status Status: Confirmed Anesthesia Plan Resuscitation Status: Full Code Anesthesia Technique: Labor Epidural Airway Planned: Natural Airway Monitors Used: Standard Monitors Preoperative Comments:: Chronic Migraines, Hypothyroid, lower back pain from coccygeal injury as teenager.
--- NOTE | 2024-07-30 19:31 | W.PM.OBNL1 ---
Date of service: 07/30/24 Time of Service: 19:31 Informed Consent Informed Consent: Induction of Labor (with Pitocin) Pelvic Exam Dilation: 2.5 Effacement (%): 90 station: -1 Position: OP Cervix Position: mid Consistency: soft BISHOPS Score(Cervical Ripeness Score): 9 Vaginal Exam Presentation: Vertex Contractions Contraction Frequency(min): q 2-5 minutes Intensity: Moderate Fetus A Monitor: External (US) Heart Rate Baseline: 125 Variability: Moderate (6-25 BPM) Categories: Category I FHR Rhythm: Regular Accelerations: 15 X 15 Decelerations: None (at 1926 Vaga got up to the birthing ball and the EFM showed a deceleration which was verified to be the maternal pulse) Amniotic Membrane Status: Intact Assessment and Plan Assessment and plan (1) Encounter for induction of labor: Status: Acute Assessment and plan: - Discussed that cervical ripening is now complete after 1 dose of misoprostol - Reviewed options for continuing induction, recommended initiating low dose Pitocin and consisering AROM. She is in agreement with this plan. - Will monitor continuously during Pitocin use. Reviewed options for monitoring including external US, telemetry, and Taylor Novii - Advised maternal position changes to facilitate rotation - Plan next SVE in about 4 hours or sooner PRN (2) 40 weeks gestation of : Status: Acute Assessment and plan: - Reassuring surveillance - Anticipate vaginal Objective Abnormal lab results 07/30/24 Range/Units 13:07 WBC 17.07 H (4.4-10.8) 10^3/uL MPV 11.4 H (8.0-11.0) fL Temp Pulse Resp BP Pulse Ox 99.3 F 100 H 18 132/82 95 07/30/24 19:16 07/30/24 19:29 07/30/24 19:16 07/30/24 19:16 07/30/24 19:29 Laboratory Results WBC 17.07 10^3/uL (4.4-10.8) H 07/30/24 13:07 RBC 4.98 10^6/uL (3.93-5.22) 07/30/24 13:07 Hgb 13.6 g/dL (11.2-15.7) 07/30/24 13:07 Hct 40.9 % (36.0-46.0) 07/30/24 13:07 MCV 82 fL (80-95) 07/30/24 13:07 MCH 27.3 pg (27.0-33.0) 07/30/24 13:07 MCHC 33.3 % (32.0-36.0) 07/30/24 13:07 RDW 14.3 % (11.7-14.6) 07/30/24 13:07 Plt Count 290 10^3/uL (130-400) 07/30/24 13:07 MPV 11.4 fL (8.0-11.0) H 07/30/24 13:07 ABO/Rh A Negative 07/30/24 13:07 Antibody Screen NEGATIVE 07/30/24 13:07 Objective Narrative Objective Narrative: Camryn is coping well with labor and feels tired but is not exhausted. She feels most of her discomfort in her back. Subjective Interval history since last seen: Camryn is a 19 year old at 40 weeks GA who was admitted this morning with prodromal labor, at which time she decided to augment labor but declined therapeutic rest. She received one dose of misoprostol orally at 1410. She has felt contractions intensify since then, though they dimished some while in the tub. Results Hemoglobin/Hematocrit: Hgb 13.6 g/dL (11.2-15.7) 07/30/24 13:07 Hct 40.9 % (36.0-46.0) 07/30/24 13:07 Abnormal Lab Findings: Abnormal Labs 07/30/24 13:07 WBC 17.07 H MPV 11.4 H
[2024-07-30] MEDS: Lactated Ringers 1,000 ML 125 ML IV (20:25)
[2024-07-30] MEDS: Oxytocin/Normal Saline 30 UNIT/500 ML BAG 2 UNITS IV (20:30)
[2024-07-30] MEDS: Lactated Ringers 500 ML IV (23:50)
--- NOTE | 2024-07-30 23:56 | PGE_ITS ---
Date of service: 07/30/24 Time of Service: 23:56 Informed Consent Informed Consent: Induction of Labor (AROM) Pelvic Exam Dilation: 3 Effacement (%): 90 station: -1 Cervix Position: mid Consistency: soft Contractions Monitor Mode: External Contraction Frequency(min): q 2-3 minutes Intensity: Moderate Fetus A Heart Rate Baseline: 135 Variability: Moderate (6-25 BPM) Categories: Category II Accelerations: 15 X 15 Decelerations: Variable (non-recurrent, only one prior to AROM) Amniotic Membrane Status: Ruptured Assessment and Plan Assessment and plan (1) 40 weeks gestation of : Status: Acute Assessment and plan: - Category II surveillance, overall reassuring. - At the patient's request, pain management options in labor were discussed, including non-pharmacologic pain relief measures, nitrous oxide, IV medications and regional anesthesia. After expressing interest in an epidural, she was counseled further on risks related to epidural administration, which include: inadequate analgesia; maternal hypotension; urinary retention; heart rate changes (usually transient); anesthetic risks (very rare); and effects on length of labor. She was also counseled that regional anesthesia is not found to increase the risk of delivery. At this time, she would like to proceed with an epidural, and use Stadol now while awaiting the anesthesia team. LR bolus started. PROPERTY INVESTOR notified through the nursing powersaw supervisor. (2) Encounter for induction of labor: Status: Acute Assessment and plan: - After SVE and prior to decision for pain management, Camryn was counseled on the potential benefits of AROM to facilitate labor progress, reviewing also the risks of prolonged ROM and potential cord prolapse. Overall, AROM was felt to be helpful at this time, to which she gave consent to perform. In the usual fashion with an [place], AROM was performed returning a moderate amount of green (but not thick) meconium. tracing was stable after AROM, though was difficult to trace continuously due to maternal restlessness and position changes (so at times it was tracing maternal heart rate). - Will plan to reinitiate Pitocin after epidural placement once uterine activity can better be assessed Objective Abnormal lab results 07/30/24 Range/Units 13:07 WBC 17.07 H (4.4-10.8) 10^3/uL MPV 11.4 H (8.0-11.0) fL Temp Pulse Resp BP Pulse Ox 99.3 F 97 H 18 132/82 97 07/30/24 19:16 07/30/24 23:45 07/30/24 19:16 07/30/24 19:16 07/30/24 23:45 Laboratory Results WBC Cancelled 07/30/24 19:21 RBC Cancelled 07/30/24 19:21 Hgb Cancelled 07/30/24 19:21 Hct Cancelled 07/30/24 19:21 MCV Cancelled 07/30/24 19:21 MCH Cancelled 07/30/24 19:21 MCHC Cancelled 07/30/24 19:21 RDW Cancelled 07/30/24 19:21 Plt Count Cancelled 07/30/24 19:21 MPV Cancelled 07/30/24 19:21 ABO/Rh A Negative 07/30/24 13:07 Antibody Screen NEGATIVE 07/30/24 13:07 Objective Narrative Objective Narrative: - Pitocin is now discontinued. - Jennifer is restless, moving about the room between the bathroom, ball and various positions in bed. Subjective Interval history since last seen: Camryn is feeling increasing vaginal pressure and is exhausted. She had been laboring in the tub, but monitoring was difficult and she needed to void so she exited the tub, after which some uterine tachysystole was noted with a brief variable deceleration so executive staff assistant decreased then discontinued Pitocin (which had been up to 8 mU / min). Results Hemoglobin/Hematocrit: Hgb Cancelled 07/30/24 19:21 Hct Cancelled 07/30/24 19:21 Abnormal Lab Findings: Abnormal Labs 07/30/24 13:07 WBC 17.07 H MPV 11.4 H
[2024-07-31] VITALS (245 sets, daily range): BP systolic 91–170; BP diastolic 53–86; PULSE 0–130; RESP 16–18; TEMP 36.6–37.9; O2SAT 93–100
[2024-07-31] MEDS: hydrOXYzine PAMOATE 25 MG CAP 50 MG PO (00:15)
[2024-07-31] MEDS: FentaNYL/ROPIvacaine 2 mcg/ml and 0.1% 200 ML CADD Cassette EP (01:26)
--- NOTE | 2024-07-31 01:39 | W.ANESNEU ---
Epidural/Spinal Catheter Date Performed: 07/31/24 Procedure Start: 00:50 Procedure Stop: 01:28 Requesting Provider: Chikis Martinez Procedure Location: Obstetrics Reason Performed: Labor Epidural Standard Monitors Applied: ECG, Blood Pressure, SpO2 and See EMR for corresponding vital signs Patient Position: Sitting Sedation Given (Indicate Dose Given): No Sedation given Patient Mental Status: Awake Sterility: Hand Hygiene, Surgical Cap, Surgical Mask, Sterile Gloves, Sterile Drape/Sheet, Eye Protection and Chlorhexidine Procedure Location: L3-L4 Interspace Epidural Needle: Tuohy 18 Gauge Needle Length: 3.5 Inch Needle Approach: Midline Epidural Procedure: Skin Prepped, Sterile Drape Placed, 1% Lidocaine to skin and subcutaneous tissue with 25G needle, Tuohy Needle placed, LUCIE to Saline Used, Epidural Catheter Placed, Negative Heme, Negative CSF Flow and Tuohy Needle Removed Catheter Placed?: Catheter Placed Test Dose (Indicate Dose Given): 3ml 1.5% Lidocaine with 1:200K Epinephrine Given and Negative Test Dose Loss of Resistance Depth (cm): 5 Catheter depth at skin (cm): 12 Dressing: [place] Dressing Placed, Tegaderm Applied, Mastisol Used and Dressing reinforced with Tape Epidural Provider Bolus (Indicate Dose Given): Total Ropivacaine 0.1% with Fentanyl 2mcg/ml Given from pump. (ml) Dose:: 7cc Additives (Indicate Dose Given ): None Infusion Medication: Medication Infusion Began Medication Infusion: Ropivacaine 0.1% with Fentanyl 2mcg/ml Maintenance Infusion Rate (ml/hour): 10 PCEA Bolus Dose (ml): 5 Post Procedure Pain score (0-10): 1 Block Level: T10 Paresthesia: None Ultrasound: Used to balta site Number of Attempts (See previous attempts in note section): 1 Procedure Tolerated: No Complications and Patient tolerated well Procedure Outcome: Successful Performed By: Bruno Kowalski
[2024-07-31] MEDS: Lactated Ringers 500 ML IV (02:10)
--- NOTE | 2024-07-31 03:12 | W.PM.OBNL1 ---
Date of service: 07/31/24 Time of Service: 03:12 Informed Consent Informed Consent: Induction of Labor (AROM) Contractions Contraction Frequency(min): q 3 Intensity: Mild Fetus A Monitor: External (US) Heart Rate Baseline: 120 Variability: Moderate (6-25 BPM) FHR Rhythm: Regular Accelerations: 15 X 15 Decelerations: None (had a period of non-recurrent late decelerations after epidural placement (likely related to low-normal blood pressure) which resolved with position change and IV bolus) Assessment and Plan Assessment and plan (1) 40 weeks gestation of : Status: Acute Assessment and plan: - Category I surveillance (resolved from Category II just after epidural with the help of position change and IV bolus) - Effective regional anesthesia (2) Encounter for induction of labor: Status: Acute Assessment and plan: - Pitocin re-initiated - Will watch tolerance of labor closely - Reassess cervix in ~ 2 hours or sooner PRN Objective Abnormal lab results 07/30/24 Range/Units 13:07 WBC 17.07 H (4.4-10.8) 10^3/uL MPV 11.4 H (8.0-11.0) fL Temp Pulse Resp BP Pulse Ox 98.2 F 77 17 120/67 96 07/31/24 00:18 07/31/24 03:11 07/31/24 00:18 07/31/24 03:06 07/31/24 03:07 Laboratory Results WBC Cancelled 07/30/24 19:21 RBC Cancelled 07/30/24 19:21 Hgb Cancelled 07/30/24 19:21 Hct Cancelled 07/30/24 19:21 MCV Cancelled 07/30/24 19:21 MCH Cancelled 07/30/24 19:21 MCHC Cancelled 07/30/24 19:21 RDW Cancelled 07/30/24 19:21 Plt Count Cancelled 07/30/24 19:21 MPV Cancelled 07/30/24 19:21 ABO/Rh A Negative 07/30/24 13:07 Antibody Screen NEGATIVE 07/30/24 13:07 Subjective Interval history since last seen: Camryn is comfortable after epidural placement, only feeling a mild amount of pressure with contractions, and is very happy with her decision for regional anesthesia. Results Hemoglobin/Hematocrit: Hgb Cancelled 07/30/24 19:21 Hct Cancelled 07/30/24 19:21 Abnormal Lab Findings: Abnormal Labs 07/30/24 13:07 WBC 17.07 H MPV 11.4 H
[2024-07-31] MEDS: Ondansetron 4 MG/2 ML VIAL IVP (05:07)
[2024-07-31] MEDS: Lactated Ringers 1,000 ML 125 ML IV (06:00)
--- NOTE | 2024-07-31 06:23 | W.PM.OBNL1 ---
Date of service: 07/31/24 Time of Service: 06:24 Informed Consent Informed Consent: Induction of Labor (AROM) Pelvic Exam Dilation: 6.5 Effacement (%): 100 station: 0 (+ moulding present, small amount of caput) Contractions Monitor Mode: External Contraction Frequency(min): q 2 minutes Intensity: Mild Fetus A Monitor: External (US) Heart Rate Baseline: 130 Variability: Moderate (6-25 BPM) Categories: Category II (Pitocin decreased, maternal position changed) Accelerations: 15 X 15 (+ response to scalp stimulation) Decelerations: Late and Variable Recurrence: Intermittent Amniotic Membrane Status: Ruptured (Since 2338 (now x 7 hours)) Amniotic Fluid: Meconium Date of Membrane Rupture: 07/30/24 Time of Membrane Rupture: 23:39 Assessment and Plan Assessment and plan (1) 40 weeks gestation of : Status: Acute Assessment and plan: A: IUP at 40 weeks 1 day Category II surveillance AROM x 7 hours Elevation of maternal temperature briefly Elective induction of labor in the setting of prodromal labor, currently in Pitocin (x 10 hours), now in active labor Meconium stained fluid Regional anesthesia in use (2) Encounter for induction of labor: Status: Acute Assessment and plan: P: - Will watch tolerance of labor closely, given the meconium stained fluid and category II tracing. Acidemia is unlikely as there is a reassuring response to scalp stim. - Will continue to titrate the Pitocin as able. Contractions are milder than expected to be effective, though the cervix has reassuringly progressed into active labor in a reasonable amount of time since AROM. Titration of Pitocin is somewhat limited by tolerance of labor. Could consider use of an IUPC if cervical change decelerates. - Brief maternal temperature elevation is most likely from regional anesthesia in the absence of maternal or tachycardia, though will watch closely for evidence of chorioamnionitis - Reassess in 2-3 hours or sooner PRN Objective Abnormal lab results 07/30/24 Range/Units 13:07 WBC 17.07 H (4.4-10.8) 10^3/uL MPV 11.4 H (8.0-11.0) fL Temp Pulse Resp BP Pulse Ox 98.6 F 99 H 16 126/68 96 07/31/24 06:01 07/31/24 06:13 07/31/24 01:47 07/31/24 05:36 07/31/24 06:12 Laboratory Results WBC Cancelled 07/30/24 19:21 RBC Cancelled 07/30/24 19:21 Hgb Cancelled 07/30/24 19:21 Hct Cancelled 07/30/24 19:21 MCV Cancelled 07/30/24 19:21 MCH Cancelled 07/30/24 19:21 MCHC Cancelled 07/30/24 19:21 RDW Cancelled 07/30/24 19:21 Plt Count Cancelled 07/30/24 19:21 MPV Cancelled 07/30/24 19:21 ABO/Rh A Negative 07/30/24 13:07 Antibody Screen NEGATIVE 07/30/24 13:07 Objective Narrative Objective Narrative: VS Hx: 37.9C was temperature max, after which it decreased Vagkailey is coping well with with labor, despite it protracted length. Pitocin currently at 3 mU min, was briefly at 5 mU / min at which time decelerations to the 80s were noted so the Pitocin was turned down. Subjective Interval history since last seen: Camryn continues to rest, and has been using the MEDICAL ASSISTANT FLOAT as needed. She has been able to sleep some, but is still exhausted. Results Hemoglobin/Hematocrit: Hgb Cancelled 07/30/24 19:21 Hct Cancelled 07/30/24 19:21 Abnormal Lab Findings: Abnormal Labs 07/30/24 13:07 WBC 17.07 H MPV 11.4 H
--- NOTE | 2024-07-31 09:09 | W.PM.OBNL1 ---
Date of service: 07/31/24 Time of Service: 09:09 Informed Consent Informed Consent: Induction of Labor (AROM) Pelvic Exam Dilation: 9 Effacement (%): 100 station: 0 (small amount of caput and moulding) Position: OA Contractions Contraction Frequency(min): 2-3.5 minutes Intensity: Moderate Fetus A Heart Rate Baseline: 120 Variability: Moderate (6-25 BPM) Accelerations: 15 X 15 Decelerations: Late Recurrence: Intermittent ((rare)) Assessment and Plan Assessment and plan (1) 40 weeks gestation of : Status: Acute (2) Encounter for induction of labor: Status: Acute Assessment and plan: A: IUP at 40 weeks 1 days Category II surveillance, overall reassuring Normal progress through active labor AROM x 13 hours, moderate meconium Pitocin induction of labor Regional anesthesia P: - Preparations made for delivery - Will plan to notify Peds of mec-stained fluid Objective Abnormal lab results 07/30/24 Range/Units 13:07 WBC 17.07 H (4.4-10.8) 10^3/uL MPV 11.4 H (8.0-11.0) fL Temp Pulse Resp BP Pulse Ox 98.6 F 95 H 16 115/58 L 97 07/31/24 06:01 07/31/24 09:06 07/31/24 06:30 07/31/24 08:37 07/31/24 09:04 Laboratory Results WBC Cancelled 07/30/24 19:21 RBC Cancelled 07/30/24 19:21 Hgb Cancelled 07/30/24 19:21 Hct Cancelled 07/30/24 19:21 MCV Cancelled 07/30/24 19:21 MCH Cancelled 07/30/24 19:21 MCHC Cancelled 07/30/24 19:21 RDW Cancelled 07/30/24 19:21 Plt Count Cancelled 07/30/24 19:21 MPV Cancelled 07/30/24 19:21 ABO/Rh A Negative 07/30/24 13:07 Antibody Screen NEGATIVE 07/30/24 13:07 Objective Narrative Objective Narrative: Camryn is coping well now that she has slept some. Pitocin is at 4 mU / min. The fetus feels to have rotated to OA. Escudero continues to drain urine. Subjective Interval history since last seen: Camryn continues to rest, and she has finally been able to sleep some. She is aware of pressure with contractions, but not in pain from this. Results Hemoglobin/Hematocrit: Hgb Cancelled 07/30/24 19:21 Hct Cancelled 07/30/24 19:21 Abnormal Lab Findings: Abnormal Labs 07/30/24 13:07 WBC 17.07 H MPV 11.4 H
--- NOTE | 2024-07-31 10:12 | W.PM.PROGNOT ---
Date of Service Date of service: 07/31/24 Time of Service: 09:30 Assessment and Plan Assessment and plan (1) 40 weeks gestation of : Status: Acute Assessment and plan: 19 yo at 40 1/7 as dated by 6 wk US (RAVEN: 07/30/2024) presented to L&D on 07/30/2024 for concerns surrounding labor. Her is complicated by hypothyroidism, Rh negative status, h/o coccygeal fracture, h/o PCOS, class 2 obesity (starting BMI 34, starting wt 204.8 lbs, early 1hr OGTT 143; could not tolerate 3hr OGTT but serial POC BS testing early on and at 28 weeks was WNL; A1C not done) was also complicated by isolated UTI, first trimester hyperemesis, and isolated episode of possible arrythmia incidentally noted during NST; workup with MFM unremarkable. She is noted to be GBS negative. Upon arrival to the unit, she was found to be 1/90/-2, and her labor was induced with one dose of oral 25 mcg cytotec. She subsequently labored in the water bath until her contractions began to quiet, at which point augmentation with Pitocin was initiated. Notes suggest AROM to moderate meconium fluid around 2300 on 07/30/2024 followed by placement of an epidural. As of her most recent exam around 9 am, the patient was found to be 9/100/0/soft per the property site manager, and I was asked to come evaluate the patient for concerns surrounding possible OP presentation. Patient was found resting comfortably on her right side. She reports pressure, most notably in her bottom, but declines any desires to push. A limited bedside US appreciated an OP fetus with back favoring LOP. Exam Narrative Exam Narrative: General: Well nourished female resting comfortably Pulm: No overt respiratory distress Abd: Gravid, non-tender Ext: No swelling Affect: Calm, cooperative Objective Last Vital Signs Temp 98.6 F 07/31/24 06:01 Pulse 109 H 07/31/24 09:39 Resp 16 07/31/24 06:30 BP 126/70 07/31/24 09:36 Pulse Ox 97 07/31/24 09:39 Laboratory Results - last 24 hr 07/30/24 07/30/24 13:07 19:21 WBC 17.07 H Cancelled RBC 4.98 Cancelled Hgb 13.6 Cancelled Hct 40.9 Cancelled MCV 82 Cancelled MCH 27.3 Cancelled MCHC 33.3 Cancelled RDW 14.3 Cancelled Plt Count 290 Cancelled MPV 11.4 H Cancelled ABO/Rh A Negative Antibody Screen NEGATIVE Time Spent with Patient Time Spent with Patient: 25-34 minutes Time was spent: preparing to see the patient(eg.review tests), obtaining and/or reviewing separately otained hiistory, ordering medications,tests, procedures, indepentently interpreting results and counseling the patient
[2024-07-31] MEDS: TRANEXAMIC ACID/SOD. CHL. 1,000 MG/100 ML BAG 600 MG IVPB (12:20)
[2024-07-31] MEDS: Lidocaine 1% Multi-Dose 20 ML VIAL IJ (12:30)
--- NOTE | 2024-07-31 12:32 | PLAC_PTH ---
PATIENT: Camryn Cha LOC: OBS U#:[id number] AGE/SX: 19/F ROOM: OBS.300 RE07/30/[address]: Rochelle Reeder : 2005 BED: A DIS: 08/01/2024 SPEC #: [id number] RECD: 08/02/24 12:40 STATUS: STEVE REQ #: [id number] SILVIO: 07/31/24 12:[address]: Rochelle Reeder DEPT: Surgical Specimen RECD BY: Mackenzie Solorio ENTERED: 08/02/24 12:41 SP TYPE: PLAC OTHR DR: Rae Cristina, MATILDE Tissues: 1 - PLACENTA (3RD TRIMESTER) Procedures: GROSS AND MICRO LEVEL 5 Comments: [id number]
--- NOTE | 2024-07-31 12:42 | W.PM.OBNL1 ---
Date of service: 07/31/24 Time of Service: 12:15 Assessment and Plan Assessment and plan (1) Maternal exhaustion complicating labor and delivery: Status: Acute Assessment and plan: A: IUP at 40 weeks 1 d 2nd stage of labor Category II surveillance Maternal exhaustion P: - Updates given to Dr. Ashby (who was already on the unit) regarding the tracing, then development of maternal exhaustion, who came in to counselling psychologist Camryn on the option of vacuum assisted delivey. Objective Abnormal lab results 07/30/24 Range/Units 13:07 WBC 17.07 H (4.4-10.8) 10^3/uL MPV 11.4 H (8.0-11.0) fL Temp Pulse Resp BP Pulse Ox 98.6 F 99 H 16 114/66 97 07/31/24 06:01 07/31/24 12:37 07/31/24 06:30 07/31/24 12:37 07/31/24 09:39 Laboratory Results WBC Cancelled 07/30/24 19:21 RBC Cancelled 07/30/24 19:21 Hgb Cancelled 07/30/24 19:21 Hct Cancelled 07/30/24 19:21 MCV Cancelled 07/30/24 19:21 MCH Cancelled 07/30/24 19:21 MCHC Cancelled 07/30/24 19:21 RDW Cancelled 07/30/24 19:21 Plt Count Cancelled 07/30/24 19:21 MPV Cancelled 07/30/24 19:21 ABO/Rh A Negative 07/30/24 13:07 Antibody Screen NEGATIVE 07/30/24 13:07 Objective Narrative Objective Narrative: SVE: pushing commenced at a +1 station, and Camryn was able to bring the vertex to + 3 after about 1.25 hours of pushing after which she was not able to achieve further descent spontaneously. UCs: q 2 minutes Pitocin: 4 mU /minutes increased to 5 mU / min during the 2nd stage FHTs: 130s, moderate variability, early / variable and late decelerations to the 80-90s until about 1120 at which time the decelerations imporved (less frequent, milder sarahi) Subjective Interval history since last seen: Camryn has been pushing since 1030. Initial pushing efforts were excellent, but her energy has been flagging and she is requesting help. Results Hemoglobin/Hematocrit: Hgb Cancelled 07/30/24 19:21 Hct Cancelled 07/30/24 19:21 Abnormal Lab Findings: Abnormal Labs 07/30/24 13:07 WBC 17.07 H MPV 11.4 H
--- NOTE | 2024-07-31 12:54 | OBVDS_ITS ---
Date of service: 07/31/24 Time of Service: 12:55 OB Labor/ Delivery Information Baby A Delivery Delivery Method: Assisted (vacuum-assisted with Kiwi) Presentation: Cephalic Cephalic Position: Vertex Vertex Position: Right Occipital Anterior Breech Position: N/A Amniotic Fluid: Meconium Estimated Blood Loss: 350 Delivery Outcome: Liveborn Transferred: Remains with Mother Providers Doctor: Essence Lawrence Other: Memorial Counselor - Chikis Juan Labor/Delivery Information Number of Babies in Womb: 1 Steroids Given: None Group Beta Strep: Negative Antibiotics Administered: No Rubella Status: Immune Blood Type: A- Varicella Immunity: Nonimmune Maternal Complications: Other Stages of Labor Onset of Labor Date: 07/27/24 Onset of Labor Time: 06:00 Complete Dilatation Date: 07/31/24 Complete Dilatation Time: 10:15 Labor - Stage 1 Duration: 100 hours and 15 minutes ROM Baby A: 07/30/24 ROM Baby A: 23:39 Placenta Cultured: Yes Note: On this day, Wednesday, July 31, 2024, this 19-year-old G1, now P1001, underwent a 39-week vacuum-assisted vaginal delivery complicated by severe shoulder dystocia over an intact perineum under epidural anesthesia to a 7 lbs 0 oz baby girl (Leticia). Patient was admitted to labor and delivery on the morning of July 30, 2024 for concerns surrounding possible labor. She was found to be 1/90/-2 and intact. She was induced with 1 dose of 25 mcg of oral Cytotec. Following this, she labored in a water bath until her contractions dissipated, at which point she began augmentation with Pitocin, and she received an epidural. She was artificially ruptured at 2300 on 07/30/2024 was found to have moderate meconium fluid. Patient was found to be complete at 1015 and began pushing with her orbitread operator at 1030. Maternal efforts were noted to be waxing and waning and the tracing was intermittently concerning. Based on this, at 1110 I counseled the patient on the potential need for vacuum. We thoroughly discussed the risks associated with vacuum including, but not limited to, bleeding on the scalp, skull, and brain, as well as trauma to the tissues and maternal tissues resulting in potentially severe lacerations. Patient verbalized understanding; her pushing efforts at this time were mostly appropriate, and she was allowed to continue pushing without assistance. At noon, maternal exhaustion was officially diagnosed, and the patient requested assistance by vacuum. An additional nurse was called into the room as well as the hydrate control tender who was already in house. I explained the situation to the mother and father of the baby; we confirmed desire for assistance with vacuum. She was allowed to trial pushing twice more, and the head was noted to be at the +3 station with pushing. Palpation of the scalp revealed likely HARDY presentation, as well as some molding. The patient had reportedly had her catheter removed approximately an hour before this point; I attempted a straight cath, and there was no urinary return reassuring me that the bladder was sufficiently out of the way. I applied a Kiwi vacuum 2 cm anterior to the posterior fontanelle and centered over the sagittal suture while ensuring exclusion of any maternal tissues. With the mother's next pushing efforts, the vacuum was increased to the middle of the green zone, and her pushing effort was facilitated. The vacuum was released in between pushes. During the second pushing effort, I was able to deliver the head, and the vacuum was immediately released. Turtling of the head was noted, and a shoulder dystocia was called. No nuchal cord was present, and the mother was instructed not to push. The orbitread operator and nurse were on either side of the patient, and Paolo positioning was immediately enacted. I informed the staff of the head positioning in [facility], and appropriate suprapubic pressure was administered by the orbitread operator who was over the patient's right leg. When this did not immediately release the shoulder, I attempted to release the posterior arm. The posterior arm did not release; therefore, I secured the posterior shoulder with my left hand, and gently maneuvered the head anteriorly, to promote a shrug of the posterior shoulder, which was successful. Careful attention was paid to avoid any excess tension on the neck and axillary region. With this, the posterior shoulder was rotated clockwise, and this released the shoulder dystocia. The rest of the body delivered without issue. The cord was immediately double clamped and cut by the orbitread operator, and the baby was immediately handed over to the awaiting hydrate control tender. The total time of the shoulder dystocia was recorded as 1 minute. A section of cord was collected and set aside for cord gases, which were obtained by the orbitread operator. Cord blood was then collected and set aside. Gentle traction was applied to the cord, and I requested that the Pitocin bolus be initiated. The placenta delivered fully intact within 15 minutes of delivery and without issue. Evaluation of the vaginal vault and surrounding tissues appreciated a second-degree perineal laceration. Patient's epidural was apprec iated to be sufficient for pain control, and the laceration was repaired in a traditional fashion using 2-0 Vicryl. During the repair, the patient's bleeding was noted to be brisk despite continuation of the Pitocin. Therefore, I called for tranexamic acid to be administered. By the end of the repair, her bleeding had slowed, and crede of the uterus was reassuring. At this point, bleeding was scant, and both maternal and clinical statuses were stable and good. Both mother and baby tolerated the procedure well, and both are recovering appropriately. APGARS for the baby were 7 and 9. Procedure Procedures: Scalp Electrode Placement Interventions Pain Management Interventions: Epidural./ Augmentation (Pitocin) , Pitocin rate (mU/min): 4/ Induction Indication: Other (term prodromal labor), Type of Induction: Misoprostol administration: Oral, Shoulder Dystocia Delivery Times Date of Delivery of Head: 07/31/24 Time of Delivery of the Head: 12:16 Head to Body Delivery Interval(minutes): 1 minute Verify No Fundal Pressure Applied Fundal Pressure: No Pressure Applied Arm Under Sympisis Arm Under Symphisis: Left Interventions 1st Intervention: SD Intervention: McRobert's Maneuver 2nd Intervention: SD Intervention: Suprapubic Pressure 3rd Intervention: SD Intervention: Posterior Arm Release 4th Intervention: SD Intervention: Other (Posterior shoulder shrug with clockwise rotation)
[2024-07-31] MEDS: Ibuprofen 600 MG TAB PO ×2 (13:47→20:27)
[2024-07-31] MEDS: Acetaminophen 325 MG TAB 650 MG PO ×2 (13:48→20:27)
[2024-07-31] MEDS: Hamamelis Leaf/Glycerin 100 EACH BOX PR (13:50)
[2024-07-31] MEDS: Dibucaine 1% 28 GM TUBE TP (13:50)
[2024-07-31] MEDS: Docusate Sodium 100 MG CAP PO (13:50)
[2024-07-31] MEDS: Normal Saline Flush 10 ML SYR IVP (20:27)
[2024-08-01] MEDS: Acetaminophen 325 MG TAB 650 MG PO ×3 (02:32→11:42)
[2024-08-01] MEDS: Ibuprofen 600 MG TAB PO ×3 (02:32→14:51)
[2024-08-01] MEDS: Docusate Sodium 100 MG CAP PO ×2 (02:33→09:31)
[2024-08-01 07:30] VITALS: BP 112/69; PULSE 88; RESP 16; TEMP 36.6; O2SAT 96
--- NOTE | 2024-08-01 10:00 | W.PM.OBDISCH ---
Date of service: 08/01/24 Time of Service: 10:00 DS: Diagnosis Discharge Diagnosis (1) Maternal varicella, non-immune: Status: Acute Asessment and Plan: P: Varicella vaccination administered prior to discharge home (2) Rh negative state in antepartum period: Status: Acute Asessment and Plan: P: RhoGAM indicated, and administered prior to discharge home (3) Hypothyroid: Status: Chronic Asessment and Plan: P: Has been stable without medication during , consider checking a TSH in 2 weeks (4) Vacuum extraction, delivered, current hospitalization: Status: Acute Asessment and Plan: P: - Discharge home per maternal request this afternoon - support and encouragement given - Discussed home visiting nurse services, Camryn declines referral to [facility] - Discussed reproductive live plan, Camryn is unsure whether she plans to have more children, but if she did it would be at a 2-3 year spacing. She is not interested in using contraception at this time. Discussed the efficacy of BARKER and when BARKER can no longer be relied on as contraception. - Debriefed experience, which is notable for VAVD with shoulder dystocia - Discussed warning signs and education - Discussed mental health, advised prioritizing sleep as as a primary prevention for mental health decline, and reaching out early to the midwifery service is PMADs develop (5) Single live : Status: Acute Asessment and Plan: P: as above (6) Perineal laceration, second degree: Status: Acute Asessment and Plan: P: vulvar care post-repair discussed Discharge Plan Disposition Patient Disposition: Home Condition: Stable Discharge Details Reason For Visit: cervical ripening Admit Date/Time: 07/30/24 12:57 Admit Provider: Rochelle Reeder Attending Provider: Rochelle Reeder Primary Care Provider: Rae Cristina Hospital Course Hospital Course: Admitted from home in prodromal labor, patient elected induction of labor which was achieved with 1 dose of oral misoprostol, Pitocin, AROM. Less than 24 hours after the start of the induction, she achieved a VAVD notable for shoulder dystocia and 2nd degree laceration. Recommendations for Follow Up Recommended tests to be ordered by follow up provider: TSH Home Meds and New Rx's Prescriptions: Continued docusate sodium [Colace] 100 mg capsule 100 mg PO BID Qty: 60 6RF Discontinued pantoprazole [Protonix] 40 mg tablet,delayed release (DR/EC) 40 mg PO DAILY Qty: 90 7RF aspirin 81 mg tablet,chewable 81 mg PO DAILY ferrous sulfate [Feosol] 325 mg (65 mg iron) tablet 325 mg PO DAILY Qty: 90 6RF ondansetron HCl 4 mg tablet See Rx Instructions .ROUTE .COMPLEX Qty: 60 0RF Dose Instruction: TAKE 1 TABLET BY MOUTH EVERY 6 HOURS NEEDED FOR NAUSEA AND VOMITING Rx Instructions: TAKE 1 TABLET BY MOUTH EVERY 6 HOURS NEEDED FOR NAUSEA AND VOMITING Discharge Instructions Additional Instructions: Please call the office next week to schedule yoru 2 and 6 week visits. Stand Alone Forms: BC Instructions, BC Post Vaginal Deliver Activity:: Activity as Tolerated Equipment/Supplies:: No Equipment Needed Diet:: As Tolerated Discharge Orders Discharge Orders: Discharge Order (Routine); Ordered 08/01/24 Ordered By: Chikis Martinez OB:DS Summary Summary Vaginal Delivery Method: Assisted (vacuum-assisted with Kiwi) Episiotomy Description: None Laceration Description: Uterine Laceration Extension: Second Degree Contraception Discussed Contraception Discussed: Yes, [place] Infant Gender-Baby A: Female weight: 7 lb 0.7 oz Status at Discharge Functional status at discharge: independent ambulation Overall status at discharge: patient is progressing back to baseline Mental Status: mental status grossly normal Speech and Movement: speech and movement normal Mood: congruent mood Affect: normal affect Quality:SDOH Health Related Social Needs: Health related social needs details N/A Health related social needs details: N/A Exam Physical Exam Vital signs: Temp Pulse Resp BP Pulse Ox 98 F 88 16 112/69 96 08/01/24 07:30 08/01/24 07:30 08/01/24 07:30 08/01/24 07:30 08/01/24 07:30 Narrative: General: well-appearing, NAD Neck: supple, NT Respiratory: CTAB, unlabored CV: NST without murmur Breast: nipples intact with abrasions though left nipple is slightly bruised, right nipple is flat GI: soft, NT : fundus firm at 1 FB below umbilicus, Perineum is well-approximated and without edema MSK: no homans, no clonus, trace edema bilateral ankles Integument: warm, dry, pink Psychiatric: cooperative, appropriate mood and affect [facility] All Active Problems Perineal laceration, second degree (Acute) Single live (Acute) Vacuum extraction, delivered, current hospitalization (Acute) Maternal exhaustion complicating labor and delivery (Acute) 40 weeks gestation of (Acute) Encounter for induction of labor (Acute) Migraine (Chronic) Decreased movement (Acute) Low back pain (Acute) sledding accident age 9. Has done PT Elevated glucose level (Acute) Body mass index [BMI] 36.0-36.9, adult (Acute) Maternal varicella, non-immune (Acute) Rh negative state in antepartum period (Acute) Nausea and vomiting during (Acute) (Acute) History of PCOS (Acute) Hypothyroid (Chronic) TSH nml at 28 wks with no medication for months. Medical History Irregular heart rate UTI (urinary tract infection) Coccygeal fracture fell down stairs age 14 History of migraine Amenorrhea Polycystic ovarian syndrome diagnosed 10/2023 at [facility] Surgical History H/O wrist surgery ganglion cyst Family History Mother Breast cancer Cancer ovarian CA Migraine Diabetes T2DM, on insulin Maternal Grandmother Breast cancer Diabetes Father Diabetes Paternal Grandmother Cancer brain CA Paternal Grandfather Alcohol use disorder Maternal Uncle Diabetes Social History (Updated 04/30/23 @ 14:58 by Naz Cardenas RN) Smoking/Tobacco Use Status: Never Smoking risk assessment performed?: Yes Alcohol Intake: never Drug use: Never Housing: house Do you feel safe at home: Yes Do you feel safe in your relationship?: Yes Female Reproductive History Menstrual Age of Menarche: 10 History History 1 Para 0 Hx # Term Pregnancies 0 Multiple births 0 Hx # Pregnancies 0 Ectopic pregnancies 0 AB induced 0 Hx Number of Living Children 0 AB spontaneous 0 DS: Data Vitals/I&O Vitals and I&O: Vital Signs Temperature 98 F 08/01/24 07:30 Temperature 97.6 F 07/30/24 16:25 Temperature Source Oral 08/01/24 07:30 Pulse 88 08/01/24 07:30 Pulse 100 07/30/24 16:25 Pulse Rhythm Regular 08/01/24 07:30 Respiratory Rate 16 08/01/24 07:30 Respiratory Depth Normal 07/31/24 20:00 Blood Pressure 112/69 08/01/24 07:30 Blood Pressure 123/89 07/30/24 16:25 Blood Pressure Mean 83 08/01/24 07:30 Pulse Oximetry 96 08/01/24 07:30 Oxygen Delivery Method Room Air 07/30/24 13:37 Oxygen Flow Rate 0 07/30/24 13:37 Pain Level 2 08/01/24 09:31 Comment CNM aware. 07/31/24 05:51 Intake & Output 07/31/24 07/31/24 08/01/24 11:59 23:59 11:59 Intake Total 2012.85 / 3356.35 1342.50 / 3356.35 Output Total 1030 / 1930 900 / 1930 400 / 400 Balance 983.85 / 1426.35 442.50 / 1426.35 -400 / -400 Intake: IV 2012.85 / 3356.35 1342.50 / 3356.35 Output: Urine 730 / 1630 900 / 1630 400 / 400 Emesis 300 / 300 Other: Urine Color Yellow Urine Appearance Clear Data Completed and Pending Labs on day of discharge: Labs from last 24 hours 08/01/24 08/01/24 07/30/24 06:14 01:01 13:07 Screen Pending Cancelled Rhogam Unit Number [id number] Unit Expiration Date 01/19/2025 Product Lot # [id number]
--- NOTE | 2024-08-01 11:27 | ANES.POST_ITS ---
Postoperative Evaluation Date, Time and Location Date Performed: 08/01/24 Time Performed: 11:27 Patient Location: Obstetrics Vital Signs Most Recent Imported Vital Signs: Most Recent Vital Signs Temp Pulse Resp BP Pulse Ox 36.6 C 88 16 112/69 96 08/01/24 07:30 08/01/24 07:30 08/01/24 07:30 08/01/24 07:30 08/01/24 07:30 Pain Score Most Recent Pain Score: Most Recent Pain Score Pain Level 2 08/01/24 09:31 Assessment Mental Status: Awake (Alert & Oriented to Patient Baseline) Airway and Respiratory Function: Patent airway with normal (patient baseline) respiratory exam Cardiovascular Function: Hemodynamically Stable Hydration Status: Adequately Hydrated Nausea & Vomiting: No Nausea or Vomiting Pain: Pt. Denies Any Pain Peripheral Nerve Block: Other (Labor Epidural. Cath removed by staff software engineer on 07/31. Cath intact.) Postoperative Comments:: Pt reports good sensory coverage from epidural during both labor and delivery. Currently feels well, no back pain, fever or headaches. Jeevan Kowalski, [employer]
[2024-08-01] MEDS: Varicella Virus Vaccine (Live) 0.5 ML SC (12:41)
[2024-08-01] MEDS: RHO(D) Immune Globulin 1,500 UNIT Syringe 1500 UNIT IM (12:49)
== END 2024-08-01 15:20 | disposition home or self-care (01) | DRG 807 ==
LOC: BCD 13:34 → OBS 13:34
PROVIDERS: Admitting Provider Advanced Practice Midwife; PCP Nurse Practitioner Family; Visit Provider Advanced Practice Midwife
DX: O99.284 Endocrine, nutritional and metabolic diseases complicating childbirth (principal); Z37.0 Single live birth; O99.354 Diseases of the nervous system complicating childbirth; O26.893 Other specified pregnancy related conditions, third trimester; O70.1 Second degree perineal laceration during delivery; O76 Abnormality in fetal heart rate and rhythm complicating labor and delivery; O75.81 Maternal exhaustion complicating labor and delivery; O66.0 Obstructed labor due to shoulder dystocia; O36.8130 Decreased fetal movements, third trimester, not applicable or unspecified; O99.214 Obesity complicating childbirth; E03.9 Hypothyroidism, unspecified; E66.812 Obesity, class 2; Z67.91 Unspecified blood type, Rh negative; Z3A.40 40 weeks gestation of pregnancy; G43.909 Migraine, unspecified, not intractable, without status migrainosus; Z28.39 Other underimmunization status; E28.2 Polycystic ovarian syndrome; R25.2 Cramp and spasm; M54.50 Low back pain, unspecified
CPT/HCPCS: 36415; 85027; 85461; 86850; 86900; 86901; 90384; 90716; 59025; 59200; 88307; J0595; J2003; J2405; J2790; J3490

== ENCOUNTER 2024-08-13 11:25 | Outpatient (CLI) | payer MEDICAID, SELFPAY ==
[2024-08-13 12:04] LABS: TSH (W/Ref FT4) 1.04 uIU/mL (0.36-3.74)
== END 2024-08-13 11:26 | disposition home or self-care (01) ==
LOC: LBO 11:25
PROVIDERS: PCP Nurse Practitioner Family; Visit Provider Advanced Practice Midwife
DX: E03.9 Hypothyroidism, unspecified (principal)
CPT/HCPCS: 36415; 84443

== ENCOUNTER 2024-08-13 13:39 | Outpatient (REF) | payer MEDICAID, SELFPAY | END 2024-08-13 13:40 | disposition home or self-care (01) | LOC: LBN 13:39 | PROVIDERS: PCP Nurse Practitioner Family; Visit Provider Advanced Practice Midwife | DX: N39.0 Urinary tract infection, site not specified (principal) | CPT/HCPCS: 87077; 87086; 87186 ==

== ENCOUNTER 2024-12-16 14:16 | Outpatient (CLI) | payer MEDICAID, SELFPAY ==
[2024-12-16 17:55] LABS: TSH (W/Ref FT4) 2.11 uIU/mL (0.36-3.74)
== END 2024-12-16 14:17 | disposition home or self-care (01) ==
LOC: LBO 14:16
PROVIDERS: PCP Nurse Practitioner Family
DX: E03.9 Hypothyroidism, unspecified (principal)
CPT/HCPCS: 36415; 84443